=== PATIENT | female | born 1975 ===

== ENCOUNTER 2021-02-05 19:33 | Emergency (ER) | payer MEDICAID ==
[~2021-02-05] VITALS: Ht 165.1 cm; Wt 89.4 kg
[2021-02-05] MEDS ORDERED: LORAZEPAM 0.5 MG TABLET PO ONE (20:30)
[2021-02-05] MEDS ORDERED: LORAZEPAM 1 MG TABLET ONE (20:41)
[2021-02-05 20:51] LABS: BASOPHILS % (AUTO) 0.3 % (0.0-2.0); EOSINOPHILS # (AUTO) 0.1 K/uL (0.0-0.7); EOSINOPHILS % (AUTO) 1.5 % (0.0-7.0); HEMOGLOBIN 10.1 g/dL (10.9-14.3); LYMPHOCYTES # (AUTO) 1.1 K/uL (20.0-40.0); LYMPHOCYTES % (AUTO) 20.1 % (20.5-51.5); MEAN CORPUSCULAR HEMOGLOBIN 19.8 uug (24.7-32.8); MEAN CORPUSCULAR HGB CONC 31 g/dL (32.3-35.6); MEAN CORPUSCULAR VOLUME 64.5 fL (75.5-95.3); MONOCYTES # (AUTO) 0.5 K/uL (2.0-10.0); MONOCYTES % (AUTO) 9.7 % (0.0-11.0); NEUTROPHILS # (AUTO) 3.6 K/uL (1.8-8.9); NEUTROPHILS % (AUTO) 68.4 % (38.5-71.5); PLATELET COUNT (AUTO) 191 K/uL (179-408); RED BLOOD CELL COUNT(AUTO) 5.11 MIL/uL (3.63-4.92); WHITE BLOOD COUNT (AUTO) 5.2 K/uL (3.8-11.8)
[2021-02-05 20:59] LABS: CREATININE 0.7 mg/dL (0.6-1.3); POTASSIUM 3.9 mmol/L (3.5-5.1)
--- NOTE | 2021-02-05 21:20 | NUR ---
Patient discharged to home in stable condition. Written and verbal after care instructions given. Patient verbalizes understanding of instructions. Stressed follow up or return to ER for worsening s/s.PT WALKS I NSTEADY GAIT. Addendum: 02/05/21 at 2216 by CELESTINA PT SAYS FEELS BETTER, DENLEOS PALPITATION.
[2021-02-05 22:16] VITALS: BP 149/81
== END 2021-02-05 21:20 | disposition home or self-care (01) ==
LOC: ER 19:33
DX: F41.9 Anxiety disorder, unspecified (principal); R00.2 Palpitations; Z82.49 Family history of ischemic heart disease and other diseases of the circulatory system; F20.9 Schizophrenia, unspecified
CPT/HCPCS: 36415; 70030-TC; 71045; 85025; 93005; A4663